=== PATIENT | male | born 2000 | race Caucasian/White ===

== ENCOUNTER 2023-06-03 08:43 | Outpatient (REF) | payer OTHER, SELFPAY ==
[2023-06-03 10:01] LABS: Estimated Average Glucose 94 mg/dL; Hemoglobin A1c % 4.9 % (<6.0)
[2023-06-09 15:02] LABS: Testosterone, Total 248 ng/dL (250-1100)
== END 2023-06-03 08:44 | disposition home or self-care (01) ==
LOC: HO.LAB 08:43
PROVIDERS: PCP Internal Medicine; Visit Provider Family Medicine Adult Medicine
DX: Z13.29 Encounter for screening for other suspected endocrine disorder (principal)
CPT/HCPCS: 36415; 83036; 84403